=== PATIENT | male | born 1985 | race Caucasian/White ===

== ENCOUNTER 2022-10-27 09:00 | Emergency (ER) | payer OTHER ==
[2022-10-27] MEDS ORDERED: NA CHLORIDE 0.9% 1,000 ML ONE (10:04)
[2022-10-27 10:17] LABS: Absolute Lymphocytes (CBC) 1.9 K/uL (0.7-4.9); Hematocrit 48.1 % (39.6-49.0); Lymphocytes % 25.3 % (15.3-44.8); MCV 90.8 fL (80-100); MPV 7.6 fL (7.6-11.3)
[2022-10-27 10:20] LABS: Protime INR 1.25
[2022-10-27 10:35] LABS: Albumin 3.3 g/dL (3.4-5.0); Bilirubin Direct 0.2 mg/dL (0-0.2); Bilirubin Total 0.8 mg/dL (0.2-1.0); CKMB Creatine Kinase MB 5.5 ng/mL (1.0-3.6); Magnesium 2.5 mg/dL (1.6-2.4); Potassium 4.8 mmol/L (3.5-5.1); Protein, Total 8.1 g/dL (6.4-8.2); Troponin High Sensitivity 4.7 pg/mL (<58.9)
--- NOTE | 2022-10-27 11:15 | RAD REPORT ---
EXAM DESCRIPTION: RAD - Chest Single View - 10/27/2022 10:30 am CLINICAL HISTORY: COUGH Chest pain. COMPARISON: No comparisons FINDINGS: Portable technique limits examination quality. The lungs are grossly clear. The heart is normal in size. No displaced fractures. IMPRESSION: No acute intrathoracic process suspected.
[2022-10-27 11:20] LABS: Urine Blood 2+ (Negative); Urine Glucose Negative (Negative); Urine Protein Negative (Negative); Urine Specific Gravity 1.015 (1.005-1.030)
--- NOTE | 2022-10-27 11:36 | RAD REPORT ---
EXAM DESCRIPTION: CT - Chest For Pe Angio - 10/27/2022 11:24 am CLINICAL HISTORY: Chest pain. cp COMPARISON: Abdomen Pelvis W Contrast dated 10/27/2022 TECHNIQUE: CT angiogram of the pulmonary arteries was performed with MIP. All CT scans are performed using dose optimization technique as appropriate and may include automated exposure control or mA/KV adjustment according to patient size. FINDINGS: Bolus timing is suboptimal for evaluation of pulmonary thromboembolism. Grossly pulmonary embolism is not seen however there is significant clinical suspicion, V/Q scan could be performed. No acute aortic finding demonstrated. Small low suspicion nodules are seen in both lungs. No aggressive pulmonary nodule, mass or infiltrat e seen. No significant pericardial or pleural fluid. No concerning bony finding. IMPRESSION: Evaluation for pulmonary embolism is suboptimal due to bolus timing. No gross pulmonary embolism is seen, however if there is persistent clinical concern, V/Q scan could be obtained. No acute lung findings.
--- NOTE | 2022-10-27 11:38 | RAD REPORT ---
EXAM DESCRIPTION: CTAbdomen Pelvis W Contrast - 10/27/2022 11:25 am CLINICAL HISTORY: Abdominal pain. LLQ abdominal pain COMPARISON: No comparisons TECHNIQUE: Biphasic CT imaging of the abdomen and pelvis was performed with 100 ml non-ionic IV cont rast. All CT scans are performed using dose optimization technique as appropriate and may include automated exposure control or mA/KV adjustment according to patient size. FINDINGS: Tiny nonspecific nodule seen in the left lung base. The liver, spleen, pancreas, adrenal glands and kidneys are within normal limits. There is mild to moderate inflammation surrounding the splenic flexure the colon in the left upper qu adrant. Postsurgical changes are present involving the sigmoid colon with mild surrounding inflammati on. No abscess is evident. No free intraperitoneal air is seen. No bowel obstruction. Moderate retain ed stool is seen throughout the colon. Nonvisualized appendix. Lutz catheter is present in the urina ry bladder. Small amount of air is present in the urinary bladder. No evidence of significant lymphad enopathy. Bilateral fat containing inguinal hernias, larger on the right. IMPRESSION: Moderate pericolonic inflammation is seen particularly adjacent to the splenic flexure i n the left upper quadrant. No abscess or free air. Postsurgical changes are present in the sigmoid colon with mild surrounding inflammation in the peric olonic fat. No evidence of pericolonic abscess.
[2022-10-27 11:39] LABS: Urine Bacteria <20 /HPF (<20)
[2022-10-27] MEDS ORDERED: ONDANSETRON 4 MG/2 ML VIAL ONE (11:48)
[2022-10-27] MEDS ORDERED: MORPHINE 4 MG/ML SYR ONE (11:48)
[2022-10-27] MEDS ORDERED: KETOROLAC 30 MG/ML INJ ONE (11:48)
[2022-10-27 12:12] LABS: Blood Morphology Comment NOT SEEN (NOT SEEN); Platelet Estimate ADEQ; Smudge Cells PRESENT
--- NOTE | 2022-10-27 12:29 | ER ---
Nurse's Notes [facility] Name: Dar Mulligan Age: 37 yrs Sex: Male : 1985 Arrival Date: 10/27/2022 Time: 09:01 Bed 15 Private MD: Diagnosis: Pain in left shoulder;Mechanical complication of urinary (indwelling) catheter-mild pain;Abdominal tenderness;Muscle spasm;Muscle spasm of back Presentation: 10/27 09:36 Chief complaint: Patient states: Davis placed during surgical procedure 8 days ago and ss states he needs to have imaging prior to having the davis removed. Pt complains of shoulder pain and mother is concerned for possible rhabdo. Coronavirus screen: Client denies travel out of the [place] in the last 14 days. Ebola Screen: Patient denies exposure to infectious person. Patient denies travel to an Ebola-affected area in the 21 days before illness onset. Initial Sepsis Screen: Does the patient meet any 2 criteria? No. Patient's initial sepsis screen is negative. Does the patient have a suspected source of infection? No. Patient's initial sepsis screen is negative. Risk Assessment: Do you want to hurt yourself or someone else? Patient reports no desire to harm self or others. Onset of symptoms was October 19, 2022. 09:36 Method Of Arrival: Ambulatory ss 09:36 Acuity: ELOTN 3 ss Historical: - Allergies: 09:40 PENICILLINS; ss 09:40 Cipro; ss - PMHx: 09:40 Hypertensive disorder; ss - PSHx: 09:40 Cholecystectomy; ss - Immunization history:: Client reports receiving the 2nd dose of the Covid vaccine. - Social history:: Smoking status: Patient denies any tobacco usage or history of. - Family history:: not pertinent. Screenin:41 Abuse screen: Denies threats or abuse. Nutritional screening: No deficits noted. ap3 Tuberculosis screening: No symptoms or risk factors identified. 09:57 Humpty Dumpty Scale Fall Assessment Tool (age< 18yrs) Age 13 years and above (1 pt). ap3 09:57 [facility] ED Fall Risk Assessment (Adult) History of falling in the last 3 months, ap3 including since admission No falls in past 3 months (0 pts) Confusion or Disorientation No (0 pts) Intoxicated or Sedated No (0 pts) Impaired Gait No (0 pts) Mobility Assist Device Used No (0 pt) Altered Elimination Yes (1 pt) Score/Fall Risk Level 0 - 2 = Low Risk Oriented to surroundings, Maintained a safe environment, Educated pt \T\ family on fall prevention, incl call for assistance when getting out of bed, Assessed \T\ reinforced patient's understanding of fall precautions, Provided non-skid footwear, Hourly rounding (assess needs \T\ fall precautionary measures) done, Used ambulatory aids as needed (educated on \T\ assisted with), Used gait belt as appropriate. 10:26 Fall Risk No fall in past 12 months (0 pts). ap3 Assessment: 10:24 General: Appears in no apparent distress. Behavior is calm, cooperative. Pain: ap3 Complains of pain in left scapular area, right scapular area and thoracic area. Neuro: Level of Consciousness is awake, alert, obeys commands, Oriented to person, place, time, situation, Gait is steady, Speech is normal. Cardiovascular: Patient's skin is warm and dry. Respiratory: Airway is patent Respiratory effort is even, unlabored. : Davis in place to gravity drainage. 10:41 Reassessment: Patient and/or family updated on plan of care and expected duration. Pain ap3 level reassessed. Patient is alert, oriented x 3, equal unlabored respirations, skin warm/dry/pink. 11:24 Reassessment: Patient and/or family updated on plan of care and expected duration. Pain ap3 level reassessed. Patient is alert, oriented x 3, equal unlabored respirations, skin warm/dry/pink. Vital Signs: 09:36 BP 138 / 85; Pulse 84; Resp 18; Pulse Ox 98% on R/A; Weight 147.42 kg; Height 6 ft. 1 ss in. (185.42 cm); 10:27 BP 125 / 76; Pulse 84; Pulse Ox 99% on R/A; ap3 10:41 BP 133 / 76; Pulse 85; Pulse Ox 100% on R/A; ap3 09:36 Body Mass Index 42.88 (147.42 kg, 185.42 cm) ED Course: 09:01 Patient arrived in ED. as 09:40 Triage completed. ss 09:40 Arm band placed on right wrist. ss 09:41 Raul Magana MD is Attending Physician. [facility] 09:57 Hailey Lorenz, PRANAV is Primary Nurse. ap3 09:58 Patient has correct armband on for positive identification. Bed in low position. Call ap3 light in reach. Side rails up X 1. Adult w/ patient. Pulse ox on. NIBP on. Door closed. Noise minimized. 10:14 Initial lab(s) drawn, by me, sent to lab. Inserted saline lock: 20 gauge in right em1 antecubital area, using aseptic technique. Blood collected. 10:23 patient came to the ED with Davis catheter in place. the catheter bag has clear yellow ap3 urine in it, which the nurse emptied and clamped the tubing at this time in order to obtain a urine specimen. 10:32 XRAY Chest (1 view) In Process Unspecified. EDMS 11:26 CT Chest For PE Angio In Process Unspecified. EDMS 11:26 CT Abd/Pelvis - IV Contrast Only In Process Unspecified. EDMS 12:35 Shoulder Right (2 View) XRAY In Process Unspecified. EDMS 12:43 No provider procedures requiring assistance completed. ap3 13:15 IV discontinued, intact, bleeding controlled, No redness/swelling at site. Pressure ap3 dressing applied. Administered Medications: 10:17 Drug: NS 0.9% 1000 ml Route: IV; Rate: 1 bolus; Site: right antecubital; ap3 12:42 Follow up: IV Status: Completed infusion ap3 11:21 Drug: NS 0.9% 1000 ml Route: IV; Rate: 1 bolus; Site: right antecubital; ap3 12:42 Follow up: IV Status: Completed infusion ap3 12:03 Drug: TORadol (ketorolac) 30 mg Route: IVP; Site: right antecubital; ap3 12:59 Follow up: Response: No adverse reaction; Pain is unchanged, physician notified ap3 12:03 Drug: morphine 4 mg Route: IVP; Infused Over: 4 mins; Site: right antecubital; ap3 12:59 Follow up: Response: No adverse reaction; Pain is unchanged, physician notified ap3 12:03 Drug: Zofran (Ondansetron) 4 mg Route: IVP; Site: right antecubital; ap3 12:43 Follow up: Response: No adverse reaction ap3 13:14 Drug: Valium (diazepam) 10 mg Route: PO; ap3 13:23 Follow up: Response: No adverse reaction ap3 Medication: 09:57 VIS not applicable for this client. ap3 Outcome: 12:29 Discharge ordered by . idalia 13:15 Discharged to home ambulatory. ap3 13:15 Condition: good 13:15 Discharge instructions given to patient, Instructed on discharge instructions, follow up and referral plans. medication usage, Demonstrated understanding of instructions, follow-up care, medications, Prescriptions given X 2. 13:24 Patient left the ED. ap3 Signatures: Dispatcher [employer] EDNC Raul Magana MD MD cha Martinez, Luis Magana em1 Debbie Diaz RN RN ss Prokisch, Amanda, RN RN ap3
--- NOTE | 2022-10-27 12:30 | EDPHYS ---
Physician Documentation [facility] Name: Dar Mulligan Age: 37 yrs Sex: Male : 1985 Arrival Date: 10/27/2022 Time: 09:01 Bed 15 Private MD: GAYLE Physician Raul Magana HPI: 10/27 12:17 This 37 yrs old Male presents to ER via Ambulatory with complaints of Problem idalia With Urinary Catheter, Shoulder Pain. 12:17 The patient or guardian complains of decreased range of motion, pain, that is acute. idalia right shoulder. Context: The problem was sustained at a hospital 5th surgery. Onset: The symptoms/episode began/occurred 9 day(s) ago. Modifying factors: the symptoms are alleviated by remaining still, The symptoms are aggravated by movement. Associated signs and symptoms: The patient has no apparent associated signs or symptoms. Severity of symptoms: At their worst the symptoms were moderate, in the emergency department the symptoms are unchanged. The patient has not experienced similar symptoms in the past. Historical: - Allergies: 09:40 PENICILLINS; ss 09:40 Cipro; ss - PMHx: 09:40 Hypertensive disorder; ss - PSHx: 09:40 Cholecystectomy; ss - Immunization history:: Client reports receiving the 2nd dose of the Covid vaccine. - Social history:: Smoking status: Patient denies any tobacco usage or history of. - Family history:: not pertinent. ROS: 12:17 Constitutional: Negative for fever, chills, and weight loss, Eyes: Negative for injury, idalia pain, redness, and discharge, ENT: Negative for injury, pain, and discharge, Neck: Negative for injury, pain, and swelling, Cardiovascular: Negative for chest pain, palpitations, and edema, Respiratory: Negative for shortness of breath, cough, wheezing, and pleuritic chest pain, Abdomen/GI: Negative for abdominal pain, nausea, vomiting, diarrhea, and constipation, Back: Negative for injury and pain, Skin: Negative for injury, rash, and discoloration, Neuro: Negative for headache, weakness, numbness, tingling, and seizure, Psych: Negative for depression, anxiety, suicide ideation, homicidal ideation, and hallucinations, Allergy/Immunology: Negative for hives, rash, and allergies, Endocrine: Negative for neck swelling, polydipsia, polyuria, polyphagia, and marked weight changes, Hematologic/Lymphatic: Negative for swollen nodes, abnormal bleeding, and unusual bruising. 12:17 : Positive for davis pain. Exam: 12:17 Constitutional: This is a well developed, well nourished patient who is awake, alert, idalia and in no acute distress. Head/Face: Normocephalic, atraumatic. Eyes: Pupils equal round and reactive to light, extra-ocular motions intact. Lids and lashes normal. Conjunctiva and sclera are non-icteric and not injected. Cornea within normal limits. Periorbital areas with no swelling, redness, or edema. ENT: Nares patent. No nasal discharge, no septal abnormalities noted. Tympanic membranes are normal and external auditory canals are clear. Oropharynx with no redness, swelling, or masses, exudates, or evidence of obstruction, uvula midline. Mucous membranes moist. Neck: Trachea midline, no thyromegaly or masses palpated, and no cervical lymphadenopathy. Supple, full range of motion without nuchal rigidity, or vertebral point tenderness. No Meningismus. Chest/axilla: Normal chest wall appearance and motion. Nontender with no deformity. No lesions are appreciated. Cardiovascular: Regular rate and rhythm with a normal S1 and S2. No gallops, murmurs, or rubs. Normal PMI, no JVD. No pulse deficits. Respiratory: Lungs have equal breath sounds bilaterally, clear to auscultation and percussion. No rales, rhonchi or wheezes noted. No increased work of breathing, no retractions or nasal flaring. Abdomen/GI: Soft, non-tender, with normal bowel sounds. No distension or tympany. No guarding or rebound. No evidence of tenderness throughout. Back: No spinal tenderness. No costovertebral tenderness. Full range of motion. Skin: Warm, dry with normal turgor. Normal color with no rashes, no lesions, and no evidence of cellulitis. Neuro: Awake and alert, GCS 15, oriented to person, place, time, and situation. Cranial nerves II-XII grossly intact. Motor strength 5/5 in all extremities. Sensory grossly intact. Cerebellar exam normal. Normal gait. Psych: Awake, alert, with orientation to person, place and time. Behavior, mood, and affect are within normal limits. 12:17 : CVA tenderness, is absent, Male external genitalia: normal, Bladder: is normal, non-distended, non-tender, Rectal exam: is not applicable, Sexual behavior: the patient is not sexually active, a davis is noted. 12:17 Musculoskeletal/extremity: ROM: full active range of motion, full passive range of motion, limited active range of motion due to pain, in the anterior aspect of right shoulder and posterior aspect of right shoulder, Circulation is intact in all extremities. Sensation intact. Compartment Syndrome exam of affected extremity: is normal. DVT Exam: no swelling, no tenderness, negative Homans' sign noted on exam, no appreciated bluish discoloration, no erythema, no increased warmth, pain. 12:31 ECG was reviewed by the Attending Physician. [facility] Vital Signs: 09:36 BP 138 / 85; Pulse 84; Resp 18; Pulse Ox 98% on R/A; Weight 147.42 kg; Height 6 ft. 1 ss in. (185.42 cm); 10:27 BP 125 / 76; Pulse 84; Pulse Ox 99% on R/A; ap3 10:41 BP 133 / 76; Pulse 85; Pulse Ox 100% on R/A; ap3 09:36 Body Mass Index 42.88 (147.42 kg, 185.42 cm) ss MDM: 09:14 Patient medically screened. [facility] 12:25 Differential diagnosis: DJD, tendonitis. Data reviewed: vital signs, nurses notes, lab [facility] test result(s), EKG, radiologic studies, CT scan, plain films. Data interpreted: panel monitor: rate is 85 beats/min, rhythm is regular, Pulse oximetry: on room air is 100 %. Test interpretation: by ED physician or midlevel provider: ECG, plain radiologic studies. Counseling: I had a detailed discussion with the patient and/or guardian regarding: the historical points, exam findings, and any diagnostic results supporting the discharge/admit diagnosis, lab results, radiology results, the need for outpatient follow up, for definitive care, a general surgeon, a urologist. 10/27 09:52 Order name: Basic Metabolic Panel; Complete Time: 10:51 idalia 10/27 09:52 Order name: CBC with Diff; Complete Time: 12:32 idalia 10/27 09:52 Order name: LFT's; Complete Time: 10:51 idalia 10/27 09:52 Order name: Magnesium; Complete Time: 10:51 idalia 10/27 09:52 Order name: NT PRO-BNP; Complete Time: 10:51 [facility] 10/27 09:52 Order name: PT-INR; Complete Time: 10:51 10/27 09:52 Order name: Troponin HS; Complete Time: 10:51 10/27 09:52 Order name: XRAY Chest (1 view); Complete Time: 11:42 idalia 10/27 09:52 Order name: CK; Complete Time: 10:51 [facility] 10/27 09:52 Order name: Ckmb; Complete Time: 10:51 10/27 09:52 Order name: Lipase; Complete Time: 10:51 [facility] 10/27 09:52 Order name: Urine Microscopic Only; Complete Time: 12:12 [facility] 10/27 11:21 Order name: Urine Dipstick-Ancillary; Complete Time: 11:42 EDMS 10/27 12:12 Order name: Manual Differential; Complete Time: 12:32 EDMS 10/27 09:52 Order name: EKG; Complete Time: 09:54 idalia 10/27 09:52 Order name: Cardiac monitoring; Complete Time: 10:40 idalia 10/27 09:52 Order name: EKG - Nurse/Tech; Complete Time: 10:40 [facility] 10/27 09:52 Order name: IV Saline Lock; Complete Time: 10:14 [facility] 10/27 09:52 Order name: Labs collected and sent; Complete Time: 10:14 idalia 10/27 09:52 Order name: O2 Per Protocol; Complete Time: 10:16 idalia 10/27 09:52 Order name: O2 Sat Monitoring; Complete Time: 10:16 [facility] 10/27 10:53 Order name: CT Chest For PE Angio; Complete Time: 11:42 idalia 10/27 10:53 Order name: CT Abd/Pelvis - IV Contrast Only; Complete Time: 11:42 10/27 11:41 Order name: Shoulder Right (2 View) XRAY idalia 10/27 09:52 Order name: Urine Dipstick-Ancillary (obtain specimen); Complete Time: 11:21 idalia EC:31 Rate is 87 beats/min. Rhythm is regular. QRS [place] is Normal. OR interval is normal. QRS idalia interval is normal. QT interval is normal. No Q waves. T waves are Normal. No ST changes noted. Clinical impression: NSR w/ Non-specific ST/T Changes and No evidence of ischemia. Interpreted by me. Reviewed by me. Administered Medications: 10:17 Drug: NS 0.9% 1000 ml Route: IV; Rate: 1 bolus; Site: right antecubital; ap3 12:42 Follow up: IV Status: Completed infusion ap3 11:21 Drug: NS 0.9% 1000 ml Route: IV; Rate: 1 bolus; Site: right antecubital; ap3 12:42 Follow up: IV Status: Completed infusion ap3 12:03 Drug: TORadol (ketorolac) 30 mg Route: IVP; Site: right antecubital; ap3 12:59 Follow up: Response: No adverse reaction; Pain is unchanged, physician notified ap3 12:03 Drug: morphine 4 mg Route: IVP; Infused Over: 4 mins; Site: right antecubital; ap3 12:59 Follow up: Response: No adverse reaction; Pain is unchanged, physician notified ap3 12:03 Drug: Zofran (Ondansetron) 4 mg Route: IVP; Site: right antecubital; ap3 12:43 Follow up: Response: No adverse reaction ap3 13:14 Drug: Valium (diazepam) 10 mg Route: PO; ap3 13:23 Follow up: Response: No adverse reaction ap3 Disposition Summary: 10/27/22 12:29 Discharge Ordered Location: Home idalia Problem: new idalia Symptoms: have improved idalia Condition: Stable idalia Diagnosis - Pain in left shoulder idalia - Mechanical complication of urinary (indwelling) catheter - mild pain idalia - Abdominal tenderness idalia - Muscle spasm idalia - Muscle spasm of back idalia Followup: idalia - With: Private Physician - When: 2 - 3 days - Reason: Recheck today's complaints, Continuance of care, Re-evaluation by your physician Discharge Instructions: - Discharge Summary Sheet idalia - Abdominal Pain, Adult idalia - Diverticulosis idalia - Abdominal Pain, Adult, [id number] idalia Forms: - Medication Reconciliation Form idalia - Thank You Letter idalia - Antibiotic Education idalia - Prescription Opioid Use idalia Prescriptions: - Valium 5 mg Oral Tablet - take 1 tablet by ORAL route every 8 hours As needed; 20 tablet; Refills: 0, idalia Product Selection Permitted - Diclofenac Sodium 75 mg Oral tablet,delayed release (DR/EC) - take 1 tablet by ORAL route 2 times per day; 20 tablet; Refills: 0, Product idalia Selection Permitted Signatures: Dispatcher [employer] Raul Jane MD MD cha Smirch, Shelby RN RN ss Hailey Lorenz RN RN ap3
--- NOTE | 2022-10-27 12:40 | RAD REPORT ---
EXAM DESCRIPTION: RAD - Shoulder Right 2 View - 10/27/2022 12:33 pm CLINICAL HISTORY: Right shoulder pain FINDINGS: No fracture or dislocation is seen. No significant bone or joint abnormality noted
[2022-10-27] MEDS ORDERED: DIAZEPAM 5 MG TABLET ONE (12:59)
[2022-10-27 13:30] VITALS: BP 133/76; O2SAT 100
--- NOTE | 2022-10-28 08:05 | EKG ---
Test Date: 2022-10-27 Test Time: 10:36:18 House Mover: ALP MEASUREMENT RESULTS: Intervals: Rate: 87 VA: 148 QRSD: 92 QT: 382 QTc: 459 [place]: P: 54 VA: 148 QRS: 110 T: -10 INTERPRETIVE STATEMENTS: Normal sinus rhythm Right axis deviation T wave abnormality, consider inferior ischemia Abnormal ECG No previous ECG available for comparison Electronically Signed On 10-28-22 08:01:56 [employer] by Ruiz Treviño
== END 2022-10-27 13:24 | disposition home or self-care (01) ==
LOC: ER 09:00
DX: M25.511 Pain in right shoulder (principal); T83.091A Other mechanical complication of indwelling urethral catheter, initial encounter; M62.830 Muscle spasm of back; M62.838 Other muscle spasm; I10 Essential (primary) hypertension; Z88.0 Allergy status to penicillin; Z88.1 Allergy status to other antibiotic agents
CPT/HCPCS: 85025; 80048; 36415; 83735; 82550; 85610; 80076; 84484; 82553; 83690; 83880; 71275; 74177; 71045; 73030; Q9967; J7030; J2405; 81003; 81015; 93005